=== PATIENT | female | born 1950 | race Caucasian/White ===

== ENCOUNTER → 2017-05-24 | Outpatient (CLI) | payer MEDICARE, BC ==
[2015-05-16 07:58] VITALS: BP 129/67
[~2017-05-24] MED LIST: AMLO1CAP10 PO; ATOR10TA60 PO; HYDR12.58 PO; IBUP200T77 PO; MELA3TAB2 PO; POTA10TA12 PO
--- NOTE | 2017-05-24 13:40 | KCIC ---
MR of the left knee Indication: Left knee pain since February after injury. Technique: The standard multiplanar sequences are obtained. Findings: Medial meniscus: Signal identified within the medial meniscus, with subtle surface violation, compatible with a tear. Lateral meniscus: Intact. Anterior cruciate ligament: Intact Posterior cruciate ligament: Intact Medial collateral ligament: Intact. Iliotibial band: Intact. Posterolateral structures: Fibular collateral ligament, biceps tendon and popliteus tendon are intact. Extensor mechanism: Intact. Fluid: Small joint effusion. Articular cartilage -patellofemoral joint: Severe chondromalacia. -medial compartment: Mild/moderate chondromalacia. -lateral compartment: Mild posterior lateral tibial plateau chondromalacia. Bones: Mild edema or cystic change within the posterior tibial plateau. No acute fracture or aggressive bone destruction. Soft tissue: Unremarkable Impression: 1. Medial meniscal tear. 2. Primary osteoarthritis. Electronically signed by: Mak Jones MD (05/24/2017 1:36 PM) [id number]
== END | disposition home or self-care (01) ==
LOC: KCIC MRI 12:10
PROVIDERS: ATTEND Nurse Practitioner Family
DX: S83.242A Other tear of medial meniscus, current injury, left knee, initial encounter (principal); M17.12 Unilateral primary osteoarthritis, left knee; X58.XXXA Exposure to other specified factors, initial encounter; Y93.89 Activity, other specified; Y92.89 Other specified places as the place of occurrence of the external cause; Y99.8 Other external cause status
CPT/HCPCS: 73721

== ENCOUNTER → 2018-06-24 | Outpatient (CLI) | payer MEDICARE, BC ==
[2015-05-16 07:58] VITALS: BP 129/67
--- NOTE | 2018-06-24 10:11 | RAD ---
DATE: 06/24/2018 EXAM: MAMMO SHELLEY SCREENING BILATERAL HISTORY: Routine screening COMPARISON: 10/05/2016 This study was interpreted with the benefit of Computerized Aided Detection (CAD). The breast parenchyma shows scattered fibroglandular densities. Breast parenchyma level B. FINDINGS: 2-D and 3-D tomosynthesis imaging was performed in CC and MLO projections. Old breast biopsy markers are again noted laterally in both breasts. Several tiny scattered smooth nodular opacities in both breasts appear to be unchanged. No spiculated mass or architectural distortion is evident. Benign type calcifications are present. No suspicious microcalcifications have developed. IMPRESSION: Stable mammograms without evidence of malignancy. BI-RADS CATEGORY: 2 BENIGN FINDING(S) RECOMMENDED FOLLOW-UP: 12M 12 MONTH FOLLOW-UP PQRS compliance statement: Patient information was entered into a reminder system with a target due date for the next mammogram. Mammography is a sensitive method for finding small breast cancers, but it does not detect them all and is not a substitute for careful clinical examination. A negative mammogram does not negate a clinically suspicious finding and should not result in delay in biopsying a clinically suspicious abnormality. "Our facility is accredited by the [employer] Mammography Program."
== END | disposition home or self-care (01) ==
LOC: MAMMO 07:51
PROVIDERS: ATTEND Nurse Practitioner Family
DX: Z12.31 Encounter for screening mammogram for malignant neoplasm of breast (principal)
CPT/HCPCS: 77063; 77067

== ENCOUNTER → 2019-12-21 | Outpatient (CLI) | payer MEDICARE, BC ==
[2015-05-16 07:58] VITALS: BP 129/67
[~2019-12-21] MED LIST changes: -AMLO1CAP10 PO; +AMLO1CAP11 PO; -MELA3TAB2 PO; +MELA3TAB56 PO; -POTA10TA12 PO; +POTASSIUM CHLO10 ME1 PO
--- NOTE | 2019-12-22 18:40 | RAD ---
BILATERAL SCREENING MAMMOGRAM, 3-D History: Routine screening. Comparison: 02/28/2015, 10/05/2016, 06/24/2018 mammographic exams. Technique: MLO and CC digital tomosynthesis (3D) images obtained. Radiologist reviewed these images on dedicated workstation. Findings: Breast Tissue Density B : There are scattered areas of fibroglandular density. There are no dominant masses, suspicious microcalcifications, or architectural distortion. There is an asymmetry involving the right outer breast in the retroareolar region in the middle one third. It is increased in size compared to 06/24/2018. There is asymmetry at the posterior aspect of the right upper breast on the MLO 9 cm from the nipple. Other small masses are similar compared to prior exams. IMPRESSION: Spot compression imaging of the right breast is recommended. Ultrasound may be needed. BI-RADS Category 0: Incomplete: Need additional imaging evaluation. The images were reviewed with computer-aided detection. Patient information is entered into reminder system with a target due date for the next screening mammogram. Mammography is the most sensitive method for finding small breast cancers, but it does not detect them all and is not a substitute for careful clinical examination. A negative mammogram does not negate a clinically suspicious finding and should not result in delay in biopsying a clinically suspicious abnormality. "Our facility is accredited by the [employer] Mammography Program." Electronically signed by: South Russo MD (12/22/2019 6:37 PM) [email or web address]
== END | disposition home or self-care (01) ==
LOC: MAMMO 09:58
PROVIDERS: ATTEND Nurse Practitioner Family
DX: Z12.31 Encounter for screening mammogram for malignant neoplasm of breast (principal)
CPT/HCPCS: 77063; 77067

== ENCOUNTER → 2019-12-24 | Outpatient (CLI) | payer MEDICARE, BC ==
[2015-05-16 07:58] VITALS: BP 129/67
--- NOTE | 2019-12-24 16:55 | RAD ---
Examination: BREAST RIGHT, DIGITAL DIAGNOSTIC RT History: Abnormal mammogram Comparison/Correlation: 02/28/2015, 10/05/2016, 06/24/2018, 12/21/2019 screen mammographic exams Findings: Spot compression imaging in the MLO and CC projections was performed. Scattered fibroglandular densities are present. The asymmetry retroareolar region of the right breast has persists on spot compression. Asymmetry of the upper aspect of the right breast posteriorly is present and persists on spot compression imaging but appears similar similar upon correlation with with older prior exams.. On ultrasound examination of the right breast, there is a lymph node at the 10:00 region 9 cm from the nipple and it measures up to 0.8 cm x 0.6 cm x 0.5 cm. It has a vascular pedicle. Cortex of the lymph node is benign appearing. Right axilla is unremarkable. Impression: BI-RADS Category 2-benign. Annual mammography recommended. Electronically signed by: South Russo MD (12/24/2019 4:53 PM) [email or web address]
== END | disposition home or self-care (01) ==
LOC: MAMMO 10:05
PROVIDERS: ATTEND Nurse Practitioner Family
DX: N63.11 Unspecified lump in the right breast, upper outer quadrant (principal); R92.2 Inconclusive mammogram
CPT/HCPCS: 76641; 77065

== ENCOUNTER → 2021-07-27 | Outpatient (CLI) | payer MEDICARE, BC ==
[2015-05-16 07:58] VITALS: BP 129/67
[~2021-07-27] MED LIST changes: +MELA3TAB4 PO; -MELA3TAB56 PO
--- NOTE | 2021-07-27 15:48 | RAD ---
MG BILAT SCREEN+SHELLEY 07/27/2021 10:03 AM INDICATION: Asymptomatic screening mammogram. COMPARISON: 12/21/2019, March 24, 2018 TECHNIQUE: 3D tomosynthesis was performed in CC and MLO projections. 2D views were obtained from the 3D data. CAD was utilized as needed. FINDINGS: Breast density: Category B: There are scattered areas of fibroglandular density. Right breast: There are no suspicious microcalcifications, masses or areas of architectural distortio n. Left breast: There are no suspicious microcalcifications, masses or areas of architectural distortion . Bilateral mammogram is compared to prior examinations appears unchanged. IMPRESSION: Negative bilateral mammogram. BI-RADS category: 1; Negative Recommendations: Recommend annual screening mammography in one year. Electronically signed by: Raegan Vallejo MD (07/27/2021 3:46 PM) [email or web address]
== END ==
LOC: MAMMO 09:59
PROVIDERS: ATTEND Nurse Practitioner Family
DX: Z12.31 Encounter for screening mammogram for malignant neoplasm of breast (principal)
CPT/HCPCS: 77063; 77067